=== PATIENT | male | born 2000 | race Caucasian/White ===

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

== ENCOUNTER 2025-03-11 08:41 | Emergency (ER) | payer OTHER, BC ==
[2025-03-11 10:06] VITALS: BP 128/77; PULSE 61
== END 2025-03-11 10:23 | disposition home or self-care (01) ==
LOC: MW.ED 08:41
DX: S73.004A Unspecified dislocation of right hip, initial encounter (principal); S90.31XA Contusion of right foot, initial encounter; Z75.3 Unavailability and inaccessibility of health-care facilities; X50.0XXA Overexertion from strenuous movement or load, initial encounter
CPT/HCPCS: 73620-26-RT; 73620-RT; 99283